=== PATIENT | male | born 1965 | race Caucasian/White ===

== ENCOUNTER 2021-06-02 16:19 | Emergency (ER) | payer BC ==
[2021-06-02 16:50] VITALS: BP 163/100; PULSE 75; TEMP 99; BMI 36.6
[2021-06-02] MEDS: SODIUM CHLORIDE 0.9% 500 ML INFUS.BAG IV ONE ×2 (17:58→18:40)
[2021-06-02 18:34] LABS: ALBUMIN 3.5 g/dl (3.4-5.0); BILIRUBIN,TOTAL 0.7 mg/dl (0.2-1); CALCIUM 8.6 mg/dl (8.5-10); CREATININE 0.9 mg/dl (0.55-1.3); TOT PROT 6.9 g/dl (6.4-8.2)
[2021-06-02 19:59] LABS: BASO % 0.5 % (0-2.0); EOS % 2.3 % (0-4.5); HEMATOCRIT 44.9 % (35.4-49); HEMOGLOBIN 14.6 GM/dL (11.7-16.9); LYMPH % 23.7 % (8-40); MCH 29.3 pg (25.7-33.7); MCHC 32.6 g/dl (32.0-35.9); MEAN CELL VOLUME 89.8 fl (80-96); MONO % 5.8 % (3.8-10.2); NEUT % 67.7 % (42.8-82.8); PLATELET COUNT 256 10^3/uL (134-434); RDW 14.5 % (11.9-15.9); WHITE BLOOD COUNT 17.6 K/mm3 (4.0-10.0)
== END 2021-06-02 20:33 | disposition home or self-care (01) ==
LOC: FER 16:19
DX: E86.0 Dehydration (principal); R53.1 Weakness; U09.9 Post COVID-19 condition, unspecified
CPT/HCPCS: 36415; 80053; 85025; 93005; 99284-25